=== PATIENT | male | born 1990 | race Caucasian/White ===

== ENCOUNTER 2019-07-24 18:14 | Emergency (ER) | payer SELFPAY ==
--- NOTE | 2019-07-24 18:48 | PDOC ---
Rapid Medical Evaluation Chief Complaint: Pain Time Seen by Provider: 07/24/19 18:46 Medical Evaluation: Allergies Allergy/AdvReac Type Severity Reaction Status Date / Time No Known Allergies Allergy Verified 07/24/19 18:44 07/24/19 18:46 This patient had a brief medical evaluation in triage cc: mass to testes HPI: Patient reports lump in between both testes since yesterday Denies dysuria or penile discharge. PE: lungs clear bilaterally non tender abdomen Orders: u/a, std screening This patient will proceed to main ed for further evaluation Discharge Disposition - Diagnosis Testis mass - Referrals - Patient Instructions - Post Discharge Activity
[2019-07-24 18:58] VITALS: BP 125/82; PULSE 109; TEMP 98.1; BMI 29.2
[2019-07-24 20:15] LABS: PH,URINE 5.5 (5.0-8.0); URINE APPEARANCE CLEAR; URINE BILIRUBIN NEGATIVE (NEGATIVE); URINE COLOR YELLOW; URINE GLUCOSE (UA) NEGATIVE (NEGATIVE); URINE KETONE NEGATIVE (NEGATIVE); URINE LEUK ESTERASE NEGATIVE (NEGATIVE); URINE NITRITE NEGATIVE (NEGATIVE); URINE PROTEIN NEGATIVE (NEGATIVE); URINE UROBILINOGEN 0.2 mg/dL (0.2-1.0)
--- NOTE | 2019-07-24 20:38 | PDOC ---
History of Present Illness - General Chief Complaint: Pain Stated Complaint: PENILE PROBLEM Time Seen by Provider: 07/24/19 18:46 - History of Present Illness Initial Comments: 07/24/19 20:41 28-year-old male without comorbidities presents for scrotal pain x3 days without systemic symptoms or urinary symptoms. Past History - Past Medical History Allergies/Adverse Reactions: Allergies Allergy/AdvReac Type Severity Reaction Status Date / Time No Known Allergies Allergy Verified 07/24/19 18:44 Home Medications: Ambulatory Orders Amox-Tr/K Cl [Augmentin - 875Mg Tablet] 1 tab PO BID #20 tablet 07/24/19 Ibuprofen [Motrin -] 600 mg PO TID #30 tablet 07/24/19 - Psycho Social/Smoking Cessation Hx Smoking History: Never smoked Information on smoking cessation initiated: No Hx Alcohol Use: No Drug/Substance Use Hx: No Review of Systems - Review of Systems : Yes: See HPI *Physical Exam - Vital Signs Last Vital Signs Temp Pulse Resp BP Pulse Ox 98.1 F 109 H 18 125/82 97 07/24/19 18:45 07/24/19 18:45 07/24/19 18:45 07/24/19 18:45 07/24/19 18:45 - Physical Exam 07/24/19 20:41 External genitalia shows mild skin flaking at the scrotum in the area of the pain. There is a firm tender nodule at the midline of the scrotum. No fluctuance is felt there is mild skin induration. Normal color mild warmth ED Treatment Course - ADDITIONAL ORDERS Additional order review: Laboratory Results 07/24/19 20:00 Urine Color Yellow Urine Appearance Clear Urine pH 5.5 Ur Specific [place] 1.026 Urine Protein Negative Urine Glucose (UA) Negative Urine Ketones Negative Urine Blood Negative Urine Nitrite Negative Urine Bilirubin Negative Urine Urobilinogen 0.2 Ur Leukocyte Esterase Negative - RADIOLOGY Radiology Studies Ordered: Category Date Time Status SCROTUM AND CONTENTS US [US] Stat Ultrasound 07/24/19 18:53 Completed Medical Decision Making - Medical Decision Making 07/24/19 20:[address] Mancilla called 07/24/19 20:38 I discussed this case with Dr. Mancilla from urology we will discharge the patient on Augmentin he will follow the patient as an outpatient in the office in the next 1 to 2 days also recommended warm soaks Discharge - Discharge Information Problems reviewed: Yes Clinical Impression/Diagnosis: Scrotal wall abscess Clinical Impression/Diagnosis: (Ruled Out): Testis mass Condition: Stable Disposition: HOME - Admission No - Follow up/Referral Referrals: Remy Peña MD [Staff Physician] - - Patient Discharge Instructions Additional Instructions: Please start the antibiotics tonight. Warm soaks 5-6 times a day as we discussed. Return to the emergency room for worsening symptoms and without fail follow-up with urology in the next 1 to 2 days for further evaluation and treatment options. - Post Discharge Activity
== END 2019-07-24 20:43 | disposition home or self-care (01) ==
LOC: JER 18:14 → JERFT 18:14
DX: N49.2 Inflammatory disorders of scrotum (principal)
CPT/HCPCS: 36415; 76870-TC; 81003; 87086; 87491; 87591; 99284-25

== ENCOUNTER 2019-07-26 15:37 | Emergency (ER) | payer OTHER ==
[2019-07-26 15:50] VITALS: BP 118/80; PULSE 100; TEMP 98.8; BMI 27.3
[2019-07-26] MEDS ORDERED: SODIUM CHLORIDE 1,000 ML IV STA (15:53)
[2019-07-26] MEDS ORDERED: ACETAMINOPHEN 1000 MG/100 ML VIAL (NON FORMULARY) IVPB ONE (15:53)
--- NOTE | 2019-07-26 15:59 | PDOC ---
Rapid Medical Evaluation Chief Complaint: Abscess Boil Time Seen by Provider: 07/26/19 15:49 Medical Evaluation: Allergies Allergy/AdvReac Type Severity Reaction Status Date / Time No Known Allergies Allergy Verified 07/26/19 15:51 Vital Signs Temp Pulse Resp BP Pulse Ox 98.8 F 100 H 14 118/80 96 07/26/19 15:48 07/26/19 15:48 07/26/19 15:48 07/26/19 15:48 07/26/19 15:48 07/26/19 15:54 Pt c/o: worsening scrotal pain with drainage, headache, and chills, seen here 2 days ago and prescribed augmentin for abscess Pt on brief exam: hard tender warm draining abscess, pt ordered for: septic w/u Pt to proceed to the ED Discharge Disposition - Diagnosis Scrotal wall abscess - Referrals - Patient Instructions - Post Discharge Activity
--- NOTE | 2019-07-26 16:41 | PDOC ---
History of Present Illness - General Chief Complaint: Abscess Boil Stated Complaint: ABSESS Time Seen by Provider: 07/26/19 15:49 History Source: Patient Exam Limitations: No Limitations - History of Present Illness Initial Comments: 07/26/19 16:40 28 yo M with no past medical history presents to the emergency department with testicular swelling that he has had since Wednesday. Per the patient, he presented to the ED 2 nights ago and was prescribed augmentin which he is on day 3 for treatment of an abscess on the left inferior scrotum. Per the patient, the abscess began draining last night and has reduced in size and pain. He was concerned if this was a normal process and wanted to be checked by ED staff. The patient states the drainage was white and that the abscess developed a white head. Denies the following: dysuria, hematuria, diarrhea, inner thigh pain and erythema, fevers, chills, nausea, vomiting, diarrhea, constipation, hematochezia, and perineum pain. The patient has been adherent to his abx regiment. Allergies: NKDA Past History - Past Medical History Allergies/Adverse Reactions: Allergies Allergy/AdvReac Type Severity Reaction Status Date / Time No Known Allergies Allergy Verified 07/26/19 15:51 Home Medications: Ambulatory Orders Amox-Tr/K Cl [Augmentin - 875Mg Tablet] 1 tab PO BID #20 tablet 07/24/19 Ibuprofen [Motrin -] 600 mg PO TID #30 tablet 07/24/19 Clindamycin HCl 450 mg PO TID #63 capsule 07/26/19 COPD: No - Psycho Social/Smoking Cessation Hx Smoking History: Never smoked Hx Alcohol Use: No Drug/Substance Use Hx: No Review of Systems - Review of Systems Able to Perform ROS?: Yes Is the patient limited [place] proficient: No Constitutional: No: Chills, Diaphoresis, Fever, Weakness HEENTM: No: Eye Pain, Ear Pain, Nose Pain, Throat Pain, Mouth Pain Respiratory: No: Cough, Shortness of Breath, Hemoptysis Cardiac (ROS): No: Chest Pain, Lightheadedness, Palpitations, Chest Tightness ABD/GI: No: Constipated, Diarrhea, Nausea, Rectal Bleeding, Vomiting, Tarry Stools : Yes: Testicular Mass (ABSCESS). No: Burning, Hematuria Musculoskeletal: No: Back Pain, Joint Pain, Neck Pain Integumentary: No: Bruising, Erythema, Rash Neurological: No: Headache, Numbness, Tingling, Tremors Psychiatric: No: Change in Appetite Endocrine: No: Unexplained Weight Loss Hematologic/Lymphatic: No: Anemia *Physical Exam - Vital Signs Last Vital Signs Temp Pulse Resp BP Pulse Ox 98.8 F 100 H 14 118/80 96 07/26/19 15:48 07/26/19 15:48 07/26/19 15:48 07/26/19 15:48 07/26/19 15:48 - Physical Exam General Appearance: Yes: Nourished, Appropriately Dressed. No: Apparent Distress, Intoxicated HEENT: positive: EOMI, ADAN, Normal Voice, Symmetrical, Pharynx Normal, Hearing Grossly Normal. negative: Pale Conjunctivae, Scleral Icterus (R), Scleral Icterus (L), Muffled/Hoarse voice, Pharyngeal Erythema, Tonsillar Exudate, Tonsillar Erythema, Nasal Congestion, Rhinorrhea, Excessive drooling Neck: positive: Trachea midline, Supple. negative: Tender, Lymphadenopathy (R), Lymphadenopathy (L), Tender lateral, Tender midline Respiratory/Chest: positive: Lungs Clear, Normal Breath Sounds. negative: Chest Tender, Respiratory Distress, Accessory Muscle Use, Crackles, Rales, Rhonchi, Stridor, Wheezing Cardiovascular: positive: Regular Rhythm, Regular Rate (Heart rate on examination was 88 bpm), S1, S2. negative: Systolic Murmur Gastrointestinal/Abdominal: positive: Normal Bowel Sounds, Flat, Soft. negative: Tender, Distended, Guarding, Rebound Male Genitalia: positive: normal genitalia, testicular mass (1.5x1 cm mass on the inferior left testicle with purulent discharge and white head. no red streaks and no crepitus or tenderness in the inner thigh and perineum. ). negative: discharge, testicular tenderness, epididymus tender Lymphatic: negative: Adenopathy Musculoskeletal: positive: Normal Inspection. negative: CVA Tenderness, Vertebral Tenderness Extremity: positive: Normal Capillary Refill, Normal Inspection, Normal Range of Motion. negative: Tender, Swelling, Calf Tenderness Integumentary: positive: Normal Color, Dry, Warm Neurologic: positive: Fully Oriented, Alert, Normal Mood/Affect ED Treatment Course - LABORATORY CBC & Chemistry Diagram: 07/26/19 16:11 07/26/19 16:11 Medical Decision Making - Medical Decision Making 28 yo M with no past medical history presents to the emergency department with testicular swelling that he has had since Wednesday. Per the patient, he presented to the ED 2 nights ago and was prescribed augmentin which he is on day 3 for treatment of an abscess on the left inferior scrotum. Initial vitals: Initial Vital Signs Temp Pulse Resp BP Pulse Ox 98.8 F 100 H 14 118/80 96 07/26/19 15:48 07/26/19 15:48 07/26/19 15:48 07/26/19 15:48 07/26/19 15:48 Work up: patient presents to the emergency department for recheck of abscess patient's wound is draining appropriately and reducing in size labs were obtained from [facility]. Will rue out leukocytosis. Patient to be given clindamycin for MRSA coverage in conjunction with the augmentin. Laboratory Tests 07/26/19 07/26/19 07/26/19 16:11 16:11 16:11 WBC 6.5 RBC 5.23 Hgb 15.3 Hct 45.3 MCV 86.6 MCH 29.2 MCHC 33.7 RDW 13.2 Plt Count 189 MPV 9.6 Absolute Neuts (auto) 4.5 Neutrophils % 69.4 Lymphocytes % 20.7 Monocytes % 7.9 Eosinophils % 1.8 Basophils % 0.2 Nucleated RBC % 0 Sodium 141 Potassium 4.4 Chloride 107 Carbon Dioxide 28 Anion Gap 6 L BUN 20.7 H Creatinine 0.9 Est GFR (CKD-EPI)AfAm 135.19 Est GFR (CKD-EPI)NonAf 116.64 Random Glucose 83 Lactic Acid 0.5 Calcium 8.9 Total Bilirubin 0.7 AST 29 ALT 30 Alkaline Phosphatase 81 Total Protein 7.4 Albumin 4.1 Urine Color Urine Appearance Urine pH Ur Specific [place] Urine Protein Urine Glucose (UA) Urine Ketones Urine Blood Urine Nitrite Urine Bilirubin Urine Urobilinogen Ur Leukocyte Esterase 07/26/19 16:11 WBC RBC Hgb Hct MCV MCH MCHC RDW Plt Count MPV Absolute Neuts (auto) Neutrophils % Lymphocytes % Monocytes % Eosinophils % Basophils % Nucleated RBC % Sodium Potassium Chloride Carbon Dioxide Anion Gap BUN Creatinine Est GFR (CKD-EPI)AfAm Est GFR (CKD-EPI)NonAf Random Glucose Lactic Acid Calcium Total Bilirubin AST ALT Alkaline Phosphatase Total Protein Albumin Urine Color Yellow Urine Appearance Clear Urine pH 5.5 Ur Specific [place] 1.027 Urine Protein Negative Urine Glucose (UA) Negative Urine Ketones Trace H Urine Blood Negative Urine Nitrite Negative Urine Bilirubin Negative Urine Urobilinogen 0.2 Ur Leukocyte Esterase Negative no leukocytosis the patient was given additional information on other urologists due to inability to schedule an appointment with the initial referral within an appropriate time frame the patient was given re-assurance that the drainage was part of the resolution process The patient was discharged with no pain and complaints Dispo: Discharge Discharge - Discharge Information Problems reviewed: Yes Clinical Impression/Diagnosis: Scrotal wall abscess Condition: Stable Disposition: HOME - Admission No - Additional Discharge Information Prescriptions: Clindamycin HCl 450 mg PO TID #63 capsule - Follow up/Referral Referrals: Renzo Gonzalez MD., MD [Staff Physician] - Bhavesh Hannah MD [Staff Physician] - - Patient Discharge Instructions Patient Printed Discharge Instructions: DI for Skin Abscess, DI for Scrotal Abscess Additional Instructions: You were seen in the emergency department for the evaluation of scrotal mass. It is within normal limits for it to express itself. Nonetheless, we are pres cribing an additional antibiotic to be used in conjunction with your current one. Please finish both the clindamycin and augmentin. Please follow up with the urologist within 1 week after discharge. Other urologist information was given to you. Please return to the emergency department if you have worsening symptoms or new concerning symptoms. Thank you. - Post Discharge Activity Work/Back to School Note: Back to Work
[2019-07-26 16:55] LABS: PH,URINE 5.5 (5.0-8.0); URINE APPEARANCE CLEAR; URINE BILIRUBIN NEGATIVE (NEGATIVE); URINE COLOR YELLOW; URINE GLUCOSE (UA) NEGATIVE (NEGATIVE); URINE KETONE TRACE (NEGATIVE); URINE LEUK ESTERASE NEGATIVE (NEGATIVE); URINE NITRITE NEGATIVE (NEGATIVE); URINE PROTEIN NEGATIVE (NEGATIVE); URINE UROBILINOGEN 0.2 mg/dL (0.2-1.0)
[2019-07-26] MEDS ORDERED: ACETAMINOPHEN INJECTION 100 ML IVPB ONE (16:56)
[2019-07-26 17:02] LABS: BASO % 0.2 % (0-2.0); EOS % 1.8 % (0-4.5); HEMATOCRIT 45.3 % (35.4-49); HEMOGLOBIN 15.3 GM/dL (11.7-16.9); LYMPH % 20.7 % (8-40); MCH 29.2 pg (25.7-33.7); MCHC 33.7 g/dl (32.0-35.9); MEAN CELL VOLUME 86.6 fl (80-96); MEAN PLT VOLUME 9.6 fl (7.5-11.1); MONO % 7.9 % (3.8-10.2); NEUT % 69.4 % (42.8-82.8); PLATELET COUNT 189 K/MM3 (134-434); RBC 5.23 M/mm3 (4.00-5.60); RDW 13.2 % (11.9-15.9); WHITE BLOOD COUNT 6.5 K/mm3 (4.0-10.0)
[2019-07-26] MEDS ORDERED: CLINDAMYCIN HCL 150 MG CAPSULE (FP) PO ONE (17:13)
--- NOTE | 2019-07-26 17:13 | PDOC ---
Attending Attestation - Resident Resident Name: AjitGrey - ED Attending Attestation I have performed the following: I have examined & evaluated the patient, The case was reviewed & discussed with the resident, I agree w/resident's findings & plan, Exceptions are as noted - HPI HPI: 07/26/19 17:08 28yoM no pmhx, presnets w/ c/o swelling to scrotum and new drainage from scrotal abscess. Pt has been doing sitz baths. no fevers no new erythema, + decreased area of erythema no n/v/d, no penile complaints. - Physicial Exam PE: 07/26/19 17:10 NAD scrotum L inferior area w/ 2cm x 1.5cm area of draining fluctuance w/ white head. nontender testicles, no penile lesions no crepitus to perineum A&O x 3 - Medical Decision Making 07/26/19 17:11 28yoM w/ spontaneously draining scrotal abscess in setting of sitz baths to treat scrotal abscess. Pt is already on augmentin from prior ED visit. - continue home care w/ sitz baths - continue outpatient f/u w/ urology [facility]. - add clindamycin PO - DC
[2019-07-26] MEDS ORDERED: CLINDAMYCIN 900 MG PREMIX IVPB 900 MG/50 ML BAG IVPB ONE ×2 (17:26→17:27)
[2019-07-26 17:27] LABS: ALBUMIN 4.1 g/dl (3.4-5.0); BILIRUBIN,TOTAL 0.7 mg/dL (0.2-1); BLOOD UREA NITROGEN 20.7 mg/dL (7-18); CALCIUM 8.9 mg/dL (8.5-10.1); CREATININE 0.9 mg/dL (0.55-1.3); POTASSIUM 4.4 mmol/L (3.5-5.1); TOT PROT 7.4 g/dl (6.4-8.2)
== END 2019-07-26 18:11 | disposition home or self-care (01) ==
LOC: JER 15:37
PROC: 3E033NZ Introduction of Analgesics, Hypnotics, Sedatives into Peripheral Vein, Percutaneous Approach (ICD-10-PCS; principal; 2019-07-26)
PROC: 3E03329 Introduction of Other Anti-infective into Peripheral Vein, Percutaneous Approach (ICD-10-PCS; 2019-07-26)
DX: N49.2 Inflammatory disorders of scrotum (principal)
CPT/HCPCS: 36415; 80053; 81003; 83605; 85025; 87040; 99284-25; J0131; J7030

== ENCOUNTER 2020-05-12 12:08 | Emergency (ER) | payer OTHER ==
[2020-05-12 12:15] VITALS: BP 119/70; PULSE 80; TEMP 98; BMI 30.7
== END 2020-05-12 12:55 | disposition home or self-care (01) ==
LOC: JERFT 12:08
DX: H66.90 Otitis media, unspecified, unspecified ear (principal)
CPT/HCPCS: 99282-25

== ENCOUNTER 2020-12-24 23:13 | Emergency (ER) | payer OTHER ==
[2020-12-24 23:38] VITALS: BP 109/74; PULSE 88; TEMP 98; BMI 38.7
[2020-12-25] MEDS ORDERED: ACETAMINOPHEN 500 MG TABLET (FP) PO ONE (00:03)
[2020-12-25] MEDS ORDERED: DIPHTH,PERTUSS(ACELL),TET 0.5 ML DISP.SYRIN IM ONE ×2 (00:03→00:09)
[2020-12-25] MEDS ORDERED: ACETAMINOPHEN 500 MG TABLET (FP) ONE (00:14)
== END 2020-12-25 01:43 | disposition home or self-care (01) ==
LOC: JER 23:13
PROC: 3E0234Z Introduction of Serum, Toxoid and Vaccine into Muscle, Percutaneous Approach (ICD-10-PCS; principal; 2020-12-24)
DX: S80.211A Abrasion, right knee, initial encounter (principal); V03.09XA Pedestrian with other conveyance injured in collision with car, pick-up truck or van in nontraffic accident, initial encounter
CPT/HCPCS: 70450-TC; 70486-TC; 72125-TC; 73564-TC-RT-FY; 90715; 99285-25

== ENCOUNTER 2022-05-20 17:59 | Emergency (ER) | payer OTHER ==
[2022-05-20 19:09] VITALS: BP 114/70; PULSE 92; RESP 18; TEMP 98; BMI 33.4
== END 2022-05-20 19:53 | disposition home or self-care (01) ==
LOC: JERFT 17:59
DX: L03.115 Cellulitis of right lower limb (principal); L02.415 Cutaneous abscess of right lower limb
CPT/HCPCS: 87070; 87186; 87205; 99283-25

== ENCOUNTER 2023-05-09 18:30 | Emergency (ER) | payer SELFPAY ==
[2023-05-09 18:42] VITALS: BP 96/67; PULSE 105; RESP 18; TEMP 98.7; BMI 33.9
[2023-05-09] MEDS ORDERED: DEXAMETHASONE 4 MG TABLET (FP) PO ONE (22:43)
[2023-05-09] MEDS ORDERED: KETOROLAC TROMETHAMINE 30 MG/1 ML VIAL IM ONE (22:44)
[2023-05-09] MEDS ORDERED: KETOROLAC TROMETHAMINE 30 MG/1 ML VIAL ONE (22:46)
[2023-05-09] MEDS ORDERED: DEXAMETHASONE SOD PHOSPHATE 10 MG/1 ML VIAL ONE (22:46)
== END 2023-05-09 23:43 | disposition home or self-care (01) ==
LOC: JERFT 18:30
PROC: 3E0233Z Introduction of Anti-inflammatory into Muscle, Percutaneous Approach (ICD-10-PCS; principal; 2023-05-09)
DX: J02.9 Acute pharyngitis, unspecified (principal); Z20.822 Contact with and (suspected) exposure to COVID-19
CPT/HCPCS: 0241U-QW; 87651; 99284-25